=== PATIENT | male | born 1985 | race Caucasian/White ===

== ENCOUNTER 2016-09-18 07:45 | Outpatient (RCR) | payer OTHER | END 2016-09-23 | LOC: M PT 07:45 | PROVIDERS: ATTEND Orthopaedic Surgery | DX: S53.401D Unspecified sprain of right elbow, subsequent encounter (principal); V47.5XXD Car driver injured in collision with fixed or stationary object in traffic accident, subsequent encounter; Y92.410 Unspecified street and highway as the place of occurrence of the external cause ==

== ENCOUNTER 2020-04-16 15:11 | Emergency (ER) | payer OTHER ==
[~2020-04-16] VITALS: Ht 167.6 cm; Wt 84.1 kg
[2020-04-16] MEDS ORDERED: LIDOCAINE 1% MDV 20ML VIAL IM ONE (17:45)
[2020-04-16] MEDS ORDERED: BOOSTRIX/ADACEL VACCINE (DIPHTH/PERTUSS/ACELL/TETANUS) 0.5ML SYR IM ONE (18:15)
[2020-04-16 19:38] VITALS: BP 131/69
== END 2020-04-16 19:39 | disposition home or self-care (01) ==
LOC: M ED 15:11
DX: S01.81XA Laceration without foreign body of other part of head, initial encounter (principal); W37.8XXA Explosion and rupture of other pressurized tire, pipe or hose, initial encounter; Y92.89 Other specified places as the place of occurrence of the external cause; Y93.89 Activity, other specified; Y99.0 Civilian activity done for income or pay

== ENCOUNTER → 2020-07-16 | Outpatient (CLI) | payer SELFPAY | LOC: M LABSMTC 13:06 | PROVIDERS: ATTEND Pediatrics | DX: Z20.828 Contact with and (suspected) exposure to other viral communicable diseases (principal) ==

== ENCOUNTER → 2024-12-22 | Outpatient (REF) | payer MEDICAID ==
[2024-12-22 13:37] LABS: ALBUMIN 4.1 G/DL (3.2-5.2); ALKALINE PHOSPHATASE 69 U/L (40-129); ALT/SGPT 33 U/L (7.0-40); AST/SGOT 27 U/L (<34); BILIRUBIN,TOTAL 0.9 MG/DL (0.3-1.2); BLOOD UREA NITROGEN 18 MG/DL (9-23); CALCIUM LEVEL 8.9 MG/DL (8.5-10.1); CARBON DIOXIDE LEVEL 25 MMOL/L (20-31); CHLORIDE LEVEL 105 MMOL/L (98-107); CHOLESTEROL LEVEL 221 MG/DL (<200); CHOLESTEROL RISK RATIO 5.59 (<5); CREATININE FOR GFR 0.94 MG/DL (0.70-1.30); GLOMERULAR FILTRATION RATE > 90.0 (>60); GLUCOSE, FASTING 106 MG/DL (60-100); HDL CHOLESTEROL 39.5 MG/DL (>40); LDL CHOLESTEROL 155.7 MG/DL (<100); NON-HDL-C 181.5 MG/DL; POTASSIUM SERUM 4.3 MMOL/L (3.5-5.1); SODIUM LEVEL 139 MMOL/L (136-145); THYROID STIMULATING HORMONE 1.379 uIU/ML (0.55-4.78); TOTAL 25(OH) VITAMIN D 19.5 NG/ML (20.0-100.0); TRIGLYCERIDES LEVEL 129 MG/DL (<150)
[2024-12-22 13:54] LABS: HEMOGLOBIN A1c 5.2 % (4.0-6.0)
[2024-12-22 15:24] LABS: Trichomonas vaginalis (AMP) NOT DETECTED (NEGATIVE)
[2024-12-22 15:33] LABS: GC DNA AMPLIFICATION NEGATIVE (NEGATIVE)
[2024-12-22 16:17] LABS: HIV 1&2 SCREEN NEGATIVE (NEGATIVE)
[2024-12-22 16:25] LABS: HEPATITIS C VIRUS ABY INDEX 0.02 INDEX (<0.8)
== END ==
LOC: M LAB REF 12:30
PROVIDERS: ATTEND Physician Assistant
DX: Z11.9 Encounter for screening for infectious and parasitic diseases, unspecified (principal); E66.9 Obesity, unspecified; E55.9 Vitamin D deficiency, unspecified

== ENCOUNTER → 2025-01-12 | Outpatient (REF) | payer MEDICAID ==
[2025-01-12 13:12] LABS: CHOLESTEROL RISK RATIO 5.11 (<5); HDL CHOLESTEROL 39.5 MG/DL (>40); LDL CHOLESTEROL 140.5 MG/DL (<100); NON-HDL-C 162.5 MG/DL
== END ==
LOC: M LAB REF 11:52
PROVIDERS: ATTEND Physician Assistant
DX: E78.5 Hyperlipidemia, unspecified (principal)

== ENCOUNTER → 2025-03-21 | Outpatient (CLI) | payer OTHER | LOC: M PLALAB 11:06 | PROVIDERS: ATTEND Student in an Organized Health Care Education/Training Program | DX: L08.9 Local infection of the skin and subcutaneous tissue, unspecified (principal) ==

== ENCOUNTER → 2025-04-03 | Outpatient (CLI) | payer OTHER | LOC: M PLAIMG 07:05 | PROVIDERS: ATTEND Physician Assistant | DX: M79.631 Pain in right forearm (principal) ==

== ENCOUNTER → 2025-06-07 | Outpatient (CLI) | payer OTHER ==
[2025-06-07 09:31] LABS: APPEARANCE, URINE CLEAR (CLEAR); BACTERIA, URINE AUTO NEGATIVE (NEGATIVE); BASO # 0.1 10^3/uL (0.0-0.2); BASO % 0.8 % (0.0-1.0); BILIRUBIN, URINE AUTO NEGATIVE (NEGATIVE); BLOOD, URINE BLOOD NEGATIVE (NEGATIVE); EOS # 0.2 10^3/uL (0.0-0.5); EOS % 2.6 % (0.0-3.0); GLUCOSE, URINE (UA) AUTO NEGATIVE (NEGATIVE); KETONE, URINE AUTO NEGATIVE (NEGATIVE); LEUKOCYTE ESTERASE, URINE AUTO NEGATIVE (NEGATIVE); LYMPH # 2.8 10^3/uL (1.5-5.0); LYMPH % 32.9 % (24.0-44.0); MONO # 0.7 10^3/uL (0.0-0.8); MONO % 8.3 % (2.0-8.0); MUCUS, URINE SMALL (NEGATIVE); NEUTROPHILS # 4.6 10^3/uL (1.5-8.5); NEUTROPHILS % 54.8 % (36.0-66.0); NITRITE, URINE AUTO NEGATIVE (NEGATIVE); PLATELET COUNT, AUTOMATED 215 10^3/uL (150-450); PROTEIN, URINE AUTO NEGATIVE (NEGATIVE); RBC, URINE AUTO 0 /HPF (0-3); SPECIFIC GRAVITY URINE AUTO 1.027 (1.002-1.035); SQUAMOUS EPITHELIAL CELL UR AU 0 /HPF (0-6); UROBILINOGEN, URINE AUTO 0.2 mg/dL (0.0-2.0); WBC, URINE AUTO 1 /HPF (0-3)
[2025-06-07 10:05] LABS: CALCIUM LEVEL 9.4 MG/DL (8.5-10.1); CARBON DIOXIDE LEVEL 30 MMOL/L (20-31); CHLORIDE LEVEL 103 MMOL/L (98-107); CREATININE FOR GFR 1.01 MG/DL (0.70-1.30); GLOMERULAR FILTRATION RATE > 90.0 (>60); POTASSIUM SERUM 4.6 MMOL/L (3.5-5.1); SODIUM LEVEL 142 MMOL/L (136-145)
[2025-06-07 10:07] LABS: ESTIMATED AVERAGE GLUCOSE 105.0 MG/DL (60-110)
== END ==
LOC: M LAB 08:21
PROVIDERS: ATTEND Physician Assistant
DX: R68.82 Decreased libido (principal)